=== PATIENT | male | born 1970 | race Caucasian/White ===

== ENCOUNTER 2023-09-06 19:45 | Emergency (ER) | payer MEDICAID ==
[~2023-09-06] VITALS: Ht 182.9 cm; Wt 113.6 kg
[2023-09-06 19:53] VITALS: BP 185/105; PULSE 79; RESP 17; TEMP 98.3; O2SAT 96
[2023-09-06] MEDS ORDERED: ketorolac trometh inj. 60 MG/2 ML VIAL IM ONE (20:20)
[2023-09-06] MEDS ORDERED: DOXY-1 PO (20:20)
[2023-09-06] MEDS ORDERED: NAPR-56 PO (20:20)
[2023-09-06] MEDS: ketorolac trometh. 30mg/ml inj. IM ONE (20:34)
== END 2023-09-06 21:00 | disposition home or self-care (01) ==
LOC: ER 19:46
DX: K04.7 Periapical abscess without sinus (principal); R51.9 Headache, unspecified
CPT/HCPCS: 96372; 99283; J1885

== ENCOUNTER 2024-04-30 12:42 | Outpatient (CLI) | payer MEDICAID | END 2024-04-30 23:59 | disposition home or self-care (01) | LOC: MRI 12:42 | PROVIDERS: ATTEND Podiatrist Foot & Ankle Surgery | DX: M25.474 Effusion, right foot (principal); M72.2 Plantar fascial fibromatosis; M79.672 Pain in left foot; M79.671 Pain in right foot; I83.92 Asymptomatic varicose veins of left lower extremity; G57.53 Tarsal tunnel syndrome, bilateral lower limbs | CPT/HCPCS: 73718; 73721 ==